=== PATIENT | female | born 2000 ===

== ENCOUNTER 2018-01-18 13:32 | Emergency (ER) | payer OTHER ==
[2018-01-18 13:33] VITALS: BMI 26.5
[2018-01-18] MEDS ORDERED: Sodium Chloride 0.9% 1,000 ML IV ONE (14:07)
[2018-01-18] MEDS ORDERED: DiphenhydrAMINE 50 mg/ml Inj IVP STA (14:12)
[2018-01-18] MEDS ORDERED: Sodium Chloride 0.9% 1,000 ML ONE (14:23)
--- NOTE | 2018-01-18 14:36 | C.PDOC ---
History Of Present Illness 17 yo female w/PMHx of eczema come in for evaluation of worsening of rash over face associated with mild swelling, B/L eyes redness with greenish discharges gradually developed for past 2 days. Pt reports, 5 days ago was applying steroid cream to face given by preschool assistant principal for eczema. Otherwise, pt denies fever, chills, throat tightness or swelling, drooling, dysphagia, dyspnea, CP, SOB, wheezing, abd. pain, V/D, Ambulate to ED for evaluation, not in any apparent distress. Time Seen by Provider: 01/18/18 13:47 Chief Complaint (Nursing): Allergic Reaction History Per: Patient History/Exam Limitations: no limitations Onset/Duration Of Symptoms: Days Current Symptoms Are (Timing): Still Present Recent travel outside of the [place]: No Additional History Per: Patient, Family Past Medical History Reviewed: Historical Data, Nursing Documentation, Vital Signs Vital Signs: Last Vital Signs Temp 98.8 F 01/18/18 13:46 Pulse 102 H 01/18/18 13:46 Resp 20 01/18/18 13:46 BP 114/77 01/18/18 13:46 Pulse Ox 98 01/18/18 16:39 Family History: States: Unknown Family Hx - Social History Hx Tobacco Use: No Hx Alcohol Use: No Hx Substance Use: No - Immunization History Hx Tetanus Toxoid Vaccination: No Hx Influenza Vaccination: No Hx Pneumococcal Vaccination: No Review Of Systems Except As Marked, All Systems Reviewed And Found Negative. Constitutional: Negative for: Fever, Chills Eyes: Positive for: Redness ENT: Negative for: Throat Pain, Throat Swelling Cardiovascular: Negative for: Chest Pain, Palpitations Respiratory: Negative for: Cough, Shortness of Breath Gastrointestinal: Negative for: Nausea, Vomiting, Abdominal Pain Skin: Positive for: Rash Neurological: Negative for: Headache, Dizziness Physical Exam - Physical Exam Appears: Well, Non-toxic, No Acute Distress Skin: Normal Color, Warm, Dry, Rash (scattered erythematous papular/vesicular rash to chin, nasolabila folds, B/L cheeks, B/L eyes corner. Dry scaly skin to side of face and B/L ears.) Eye(s): bilateral: PERRL, EOMI (no pain or limitation on extraocular movement), Other (B/L conjuctival injection with scant greenish discharges. No periorbital edema or erythema.) Ear(s): Bilateral: Normal Nose: No Flaring, No Discharge Oral Mucosa: Moist Tongue: No Swelling Lips: No Swelling Throat: No Erythema, No Drooling, Other (uvula midline, no edema.) Neck: Trachea Midline, Supple Cardiovascular: Rhythm Regular, No Murmur, No JVD Respiratory: No Decreased Breath Sounds, No Accessory Muscle Use, No Stridor, No Wheezing Gastrointestinal/Abdominal: Soft, No Tenderness Back: No CVA Tenderness Extremity: Normal ROM, No Deformity, No Swelling Neurological/Psych: Oriented x3, Normal Speech, Normal Motor, Normal Sensation, Normal Reflexes ED Course And Treatment - Laboratory Results Result Diagrams: 01/18/18 14:46 01/18/18 14:46 O2 Sat by Pulse Oximetry: 98 Pulse Ox Interpretation: Normal Progress Note: On re-eval, pt is awake, playful, not in any apparent distress. Afebrile, hemodynamicaly stable. Non-toxic, tolerate Po well in ED. PUlseOx. head: flat fontanelles. neck: Supple. ENT: no acute findings. Lungs: CTA B/L , BS equal B/L. Abd: benign. Influenza (-). Pt has clinical findings c/w viral illness. parent advised.,. ref. to f/u with ped in 1-2 days for re- eavl. return to ED if any worsening or new changes. Disposition Counseled Patient/Family Regarding: Studies Performed, Diagnosis, Need For Followup, Rx Given - Disposition Referrals: Hector Kaiser MD [Staff Provider] - Disposition: HOME/ ROUTINE Disposition Time: 16:40 Condition: STABLE Additional Instructions: STOP TOPICAL STEROID CREAM IMMEDIATELY DUE TO SIDE EFFECT TAKE MEDICATION PRESCRIBED FOLLOW UP WITH PMD, ANTICHECKING IRON WORKER IN 2-3 DAYS FOR RE-EVALUATION. RETURN TO ED IF ANY WORSENING OR NEW CHANGES. Prescriptions: Cefdinir [Omnicef] 300 mg PO BID #14 cap DiphenhydrAMINE [Benadryl] 25 mg PO BID #10 cap Famotidine [Pepcid] 20 mg PO BID #10 tab Neomycin/Polymyxin/Dexamethaso [Dexamethasone/Neomycin/Polymyxin 5 Ml] 1 drop BOTHEYES Q6 #1 bottle Prednisone [Deltasone] 60 mg PO DAILY #9 tablet Instructions: Dermatitis, Cellulitis (Skin Infection), Adult (DC) Forms: [employer] (Iranian) - Clinical Impression Clinical Impression: Allergic dermatitis - PA / PEDIATRIC NEUROPSYCHOLOGIST / Resident Statement MD/DO has reviewed & agrees with the documentation as recorded. - Scribe Statement The provider has reviewed the documentation as recorded by the Scribe Capo Tate All medical record entries made by the Scribe were at my direction and personally dictated by me. I have reviewed the chart and agree that the record accurately reflects my personal performance of the history, physical exam, medical decision making, and the department course for this patient. I have also personally directed, reviewed, and agree with the discharge instructions and disposition.
[2018-01-18] MEDS ORDERED: DiphenhydrAMINE 50 mg/ml Inj ONE (14:42)
[2018-01-18 14:49] LABS: BASO % 0.5 % (0.0-2.0); LYMPH # 0.8 K/uL (1.0-4.3); LYMPH % 10.1 % (20.0-40.0); MEAN CELL VOLUME 86.8 fL (81.0-99.0); MEAN CORPUSCULAR HEMOGLOBIN 29.8 pg (27.0-31.0); MEAN CORPUSCULAR HGB CONC 34.3 g/dL (33.0-37.0); MEAN PLATELET VOLUME 9.3 fL (7.2-11.7); MONO # 1.4 K/uL (0.0-0.8); MONO % 17.5 % (0.0-10.0); NEUT # 5.6 K/uL (1.8-7.0); NEUT % 71.9 % (50.0-75.0); RBC 4.7 Mil/uL (3.80-5.20); RED CELL DISTRIBUTION WIDTH 12.7 % (11.5-14.5); WHITE BLOOD COUNT 7.9 K/uL (4.8-10.8)
[2018-01-18 15:03] LABS: BLOOD UREA NITROGEN 13 mg/dL (7-17); CALCIUM 8.6 mg/dl (8.6-10.4); GFR AFRICAN-AMERICAN > 60; GFR NON-AFRICAN AMERICAN > 60
[2018-01-18 15:04] LABS: HCG,QUALITATIVE URINE NEGATIVE (NEGATIVE)
[2018-01-18 15:08] LABS: SQUAMOUS EPITHIAL 8 /hpf (0-5); URINE BACTERIA RARE (<OCC); URINE BILIRUBIN NEGATIVE (NEGATIVE); URINE BLOOD 1+ (NEGATIVE); URINE CLARITY Hazy (Clear); URINE COLOR Yellow (YELLOW); URINE GLUCOSE (UA) NORMAL (Normal); URINE LEUKOCYTE ESTERASE NEG Leu/uL (Negative); URINE NITRATE NEGATIVE (NEGATIVE); URINE PROTEIN NEGATIVE (NEGATIVE); URINE UROBILINOGEN NORMAL mg/dL (0.2-1.0)
[2018-01-18 17:38] VITALS: BP 149/84; PULSE 71; RESP 18; TEMP 98.3; O2SAT 100
== END 2018-01-18 17:44 | disposition home or self-care (01) ==
LOC: C.ER 13:32
DX: L23.9 Allergic contact dermatitis, unspecified cause (principal)
CPT/HCPCS: 80048; 81001; 84703; 85025; 87040; 87804; 96361; 96365; 96375; 99285; J0696; J1200; J2930; J7040

== ENCOUNTER 2018-01-22 13:11 | Inpatient (IN) | payer OTHER ==
[2018-01-22 13:12] VITALS: BMI 26.5
--- NOTE | 2018-01-22 15:40 | C.PDOC ---
History Of Present Illness HPI: 18 year old female with past medical history of eczema who presents to the ED for worsening of her eczema. Patient states she went to her repair welder today who sent her to the ED. Patient states the eczema on her face started last Sunday01/16/18. Patient states she was previously applying a steroid cream to her face and then came to the ED last week. After discharge from the ED last week patient was given prednisone and antibiotic drops for her eyes. She states the eczema has worsened since Sunday. She states the rash has started to go into her eyes and on her finger of her left hand. Patient states the lesions are itchy and she had a subjective fever on . She denies nausea, vomiting, diarrhea or constipation. PMD: Patient states she would like Dr. Kaiser but has not had an initial visit yet Past Medical History: Eczema, Seasonal allergies Past Surgical History: denies Allergies: Peanuts and seafood Time Seen by Provider: 01/22/18 15:22 Chief Complaint (Nursing): Abnormal Skin Integrity History Per: Patient History/Exam Limitations: no limitations Past Medical History Vital Signs: Last Vital Signs Temp 98.1 F 01/22/18 13:29 Pulse 84 01/22/18 13:29 Resp 16 01/22/18 13:29 BP 118/79 01/22/18 13:29 Pulse Ox 99 01/22/18 17:03 Family History: States: Unknown Family Hx - Social History Hx Tobacco Use: No Hx Alcohol Use: No Hx Substance Use: No - Immunization History Hx Tetanus Toxoid Vaccination: No Hx Influenza Vaccination: No Hx Pneumococcal Vaccination: No Review Of Systems Constitutional: Positive for: Fever. Negative for: Chills Eyes: Positive for: Conjunctivae Inflammation, Eyelid Inflammation, Redness, Other (eye discharge). Negative for: Pain Cardiovascular: Negative for: Chest Pain, Palpitations Respiratory: Negative for: Cough, Shortness of Breath Gastrointestinal: Negative for: Nausea, Vomiting, Diarrhea, Constipation Genitourinary: Negative for: Dysuria Skin: Positive for: Rash, Lesions Physical Exam - Physical Exam Appears: Toxic Skin: Rash (cutaneous vesicular eruption - face, bilateral eye lids -discharge and lesions are bleeding, back of right ear and right neck, and left hand 5th finger) Head: Atraumatic, Normacephalic Oral Mucosa: Moist Cardiovascular: Rhythm Regular, No Murmur Respiratory: Normal Breath Sounds Gastrointestinal/Abdominal: Normal Exam, Soft, No Tenderness Extremity: No Pedal Edema Neurological/Psych: Oriented x3, Normal Speech, Normal Cognition ED Course And Treatment - Laboratory Results Result Diagrams: 01/22/18 15:59 01/22/18 15:59 O2 Sat by Pulse Oximetry: 99 Medical Decision Making Medical Decision Making: Eczema Herpeticum - cbc: WBC 10.4; H/H 14.7/43.7 - cmp: Na 138; K 2.8 - Acyclovir 340mg IV once - Fluorescein Stain: negative for dendritic cells and negative for corneal abrasion - f/u HSV- 1 Hypokalemia K 2.8 40mg Kdur given once EKG: NSR Spoke with Dr. Kaiser who has accepted the patient as inpatient. Disposition Discussed With : Coleen Montiel Doctor Will See Patient In The: ED - Disposition Disposition: HOSPITALIZED Disposition Time: 17:11 Condition: FAIR Forms: [employer] (Yoruba) - Clinical Impression Clinical Impression: Eczema herpeticum
[2018-01-22] MEDS ORDERED: Fluorescein 1 mg Ophthalmic Strip OD STA (15:48)
[2018-01-22] MEDS ORDERED: Tetracaine 0.5% Ophth (OR ONLY) OD STA (15:49)
[2018-01-22] MEDS ORDERED: ACYCLOVIR IV STA (15:52)
[2018-01-22] MEDS ORDERED: SODIUM CHLORIDE 0.9% IV STA (15:52)
[2018-01-22 16:03] LABS: BASO % 0.2 % (0.0-2.0); EOS % 0.3 % (0.0-4.0); HEMOGLOBIN 14.7 g/dL (11.0-16.0); LYMPH # 1.8 K/uL (1.0-4.3); MEAN CELL VOLUME 87.1 fL (81.0-99.0); MEAN CORPUSCULAR HEMOGLOBIN 29.3 pg (27.0-31.0); MEAN CORPUSCULAR HGB CONC 33.6 g/dL (33.0-37.0); MEAN PLATELET VOLUME 8.9 fL (7.2-11.7); MONO # 1.5 K/uL (0.0-0.8); MONO % 14.5 % (0.0-10.0); RBC 5.02 Mil/uL (3.80-5.20); RED CELL DISTRIBUTION WIDTH 12.5 % (11.5-14.5); WHITE BLOOD COUNT 10.4 K/uL (4.8-10.8)
[2018-01-22] MEDS ORDERED: Tetracaine 0.5% Ophth (OR ONLY) ONE (16:06)
[2018-01-22] MEDS ORDERED: Fluorescein 1 mg Ophthalmic Strip ONE (16:06)
[2018-01-22 16:22] LABS: ALB/GLOB RATIO 1.1 (1.0-2.1); ALBUMIN 3.8 g/dL (3.5-5.0); ALT/SGPT 38 U/L (9-52); AST/SGOT 26 U/L (14-36); BLOOD UREA NITROGEN 19 mg/dL (7-17); CALCIUM 8.9 mg/dl (8.6-10.4); GFR AFRICAN-AMERICAN > 60; GFR NON-AFRICAN AMERICAN > 60
[2018-01-22] MEDS ORDERED: Potassium Chloride 20 mEq ER Tab PO STA (16:38)
[2018-01-22] MEDS ORDERED: Potassium Chloride 20 mEq ER Tab PO ONE (16:57)
[2018-01-22] MEDS ORDERED: Potassium Chloride 20 mEq/15 ml LIQ UD PO ONE (19:15)
[2018-01-22] MEDS ORDERED: Lactated Ringer's 1,000 ML ONE (20:55)
[2018-01-22] MEDS: Lactated Ringer's 1,000 ML IV SCH (21:04)
[2018-01-22] MEDS: Clindamycin 300 MG in Sodium Chloride 0.9% 50 ML IVPB SCH (21:04)
--- NOTE | 2018-01-22 21:20 | CP.PCM.HP ---
History of Present Illness - History of Present Illness History of Present Illness: Chief complaint: Facial skin lesions one week duration HPI: 18 year old female with past medical history of chronic eczema who presents to the ED for worsening of her eczema. Patient states she went to her technical services librarian today who sent her to the ED. Patient started having the symptoms of worsening eczema almost 10 days ago, at that time patient went to see the technical services librarian, and the patient was given triamcinolone acetonide, prednisone pills. 2 days later she started having increasing symptoms of skin pimples in the face , and associated with the rash. But the patient continued to use the cream, because of the worsening skin lesions patient came to the emergency room on Sunday01/18/2018. At the time patient was evaluated in the emergency room, and was sent home with mostly corticosteroid, at that time it was part of drug reaction. Today morning patient went to the technical services librarian, who diagnosed this patient is eczematous herpetiform, and was referred to the emergency room because further management. In the emergency room patient was initially evaluated, was given acyclovir intravenously, fluorescein stain was done to the both eyes, which was negative for any abrasion, or corneal ulcers. Patient is able to see well, does not have any headache, no nausea vomiting, no systemic symptoms. 4 days ago patient started having bullous skin lesions, now there is known new skin lesions noted, but minimal scabbing noted, and some discharge noted from the skin lesions of the right ear lobule. PMD: Patient states she would like Dr. Kaiser but has not had an initial visit yet Past Medical History: Eczema, Seasonal allergies Past Surgical History: denies Allergies: Peanuts and seafood Review of system Noted from the chart. No systemic symptoms except as in the H&P Vital signs reviewed Patient is a very multiple skin lesions occupying the facial area, involving the forehead, periorbital area, also involving the eyelids and both cheeks and nasolabial fold. She also has a skin lesions involving the right ear lobule is mostly, and some of the discharge noted. She is also having symptoms involving the left nipple area, associated with some pus discharge noted. Cultures including viral and bacterial culture were taken from the lesions. The skin lesions multiple, almost in the same age, but some of them are crusted , and healing noted, no new skin lesions, conjunctival erythema noted No neck vein distention noted Chest good air entry bilaterally, no wheezing or rales noted CVS regular heart sound, no murmur noted Abdomen soft, nontender. Extremities no pedal edema BILL CHECKER alert awake oriented -3, no functional neurological deficit Labs reviewed Low potassium level noted. Otherwise nonspecific Assessment and recommendation: 18-year-old female came to the emergency room with a possible herpes simplex infection involving the facial area, and possibly the eyelids. We'll get ophthalmology evaluation. We'll continue the patient on intravenous acyclovir 500 mg 3 times a day. Possibly patient had superadded infection, clindamycin 300 mg 4 times a day. Patient's mother was educated about the condition. Vital culture pending, serology pending, will follow the patient Present on Admission - Present on Admission Any Indicators Present on Admission: No History of DVT/PE: No History of Uncontrolled Diabetes: No Urinary Catheter: No Decubitus Ulcer Present: No Past Patient History - Past Social History Smoking Status: Never Smoked - INTEGUMENTARY Hx Eczema: Yes - PSYCHIATRIC Hx Substance Use: No - SURGICAL HISTORY Hx Surgeries: No - ANESTHESIA Hx Anesthesia: No Meds Allergies/Adverse Reactions: Allergies Allergy/AdvReac Type Severity Reaction Status Date / Time peanut Allergy Verified 01/18/18 13:55 shellfish derived Allergy Verified 01/18/18 13:55 shrimp Allergy Verified 01/18/18 13:55 Results - Vital Signs Recent Vital Signs: Last Vital Signs Temp 98.9 F 01/22/18 19:12 Pulse 102 H 01/22/18 19:12 Resp 20 01/22/18 19:12 BP 103/69 01/22/18 19:12 Pulse Ox 100 01/22/18 19:12 - Labs Result Diagrams: 01/22/18 15:59 01/22/18 15:59 Labs: Laboratory Results - last 24 hr 01/22/18 01/22/18 15:59 15:59 WBC 10.4 RBC 5.02 Hgb 14.7 Hct 43.7 MCV 87.1 MCH 29.3 MCHC 33.6 RDW 12.5 Plt Count 230 MPV 8.9 Neut % (Auto) 68.0 Lymph % (Auto) 17.[address] [place] % (Auto) 14.5 H Eos % (Auto) 0.3 Baso % (Auto) 0.2 Neut # (Auto) 7.0 Lymph # (Auto) 1.8 [place] # (Auto) 1.5 H Eos # (Auto) 0.0 Baso # (Auto) 0.0 Sodium 138 Potassium 2.8 L Chloride 97 L Carbon Dioxide 30 Anion Gap 15 BUN 19 H Creatinine 0.9 Est GFR ( Amer) > 60 Est GFR (Non-Af Amer) > 60 Random Glucose 92 Calcium 8.9 Total Bilirubin 0.5 AST 26 ALT 38 Alkaline Phosphatase 44 Total Protein 7.3 Albumin 3.8 Globulin 3.5 Albumin/Globulin Ratio 1.1
[2018-01-22] MEDS: Acyclovir 500 MG in Sodium Chloride 0.9% 100 ML IV SCH (22:08)
[2018-01-23] MEDS: Clindamycin 300 MG in Sodium Chloride 0.9% 50 ML IVPB SCH ×4 (02:01→19:02)
[2018-01-23] MEDS: Acyclovir 500 MG in Sodium Chloride 0.9% 100 ML IV SCH ×3 (05:22→21:14)
[2018-01-23] MEDS: Lactated Ringer's 1,000 ML IV SCH ×3 (05:22→21:14)
[2018-01-23 07:34] LABS: BASO % 0.4 % (0.0-2.0); EOS # 0.2 K/uL (0.0-0.7); EOS % 2.5 % (0.0-4.0); HEMOGLOBIN 13.8 g/dL (11.0-16.0); LYMPH % 27.7 % (20.0-40.0); MEAN CORPUSCULAR HEMOGLOBIN 29.9 pg (27.0-31.0); MEAN CORPUSCULAR HGB CONC 34.3 g/dL (33.0-37.0); MEAN PLATELET VOLUME 8.6 fL (7.2-11.7); MONO # 1.1 K/uL (0.0-0.8); NEUT # 3.9 K/uL (1.8-7.0); NEUT % 54.4 % (50.0-75.0); RBC 4.63 Mil/uL (3.80-5.20); RED CELL DISTRIBUTION WIDTH 12.3 % (11.5-14.5); WHITE BLOOD COUNT 7.2 K/uL (4.8-10.8)
--- NOTE | 2018-01-23 07:47 | CARD ---
APPROVED REPORT EKG Measurement Heart [id number] <Conclusion> Normal sinus rhythm Normal ECG
[2018-01-23 07:48] LABS: ALBUMIN 3.4 g/dL (3.5-5.0); ALT/SGPT 34 U/L (9-52); AST/SGOT 22 U/L (14-36); BLOOD UREA NITROGEN 14 mg/dL (7-17); CALCIUM 8.6 mg/dl (8.6-10.4); GFR AFRICAN-AMERICAN > 60; GFR NON-AFRICAN AMERICAN > 60
[2018-01-23] MEDS: Tobramycin 0.3% OPH OINT OU SCH ×2 (17:42→21:14)
--- NOTE | 2018-01-23 20:44 | CP.PCM.PN ---
Subjective - Date & Time of Evaluation Date of Evaluation: 01/23/18 Time of Evaluation: 20:42 - Subjective Subjective: Patient was this morning was not able to opening the right side of the eye, it was much is sticky. But later with the saline patient was able to open the eye, minimal redness noted. Patient was seen by chief compressor station engineer. According to the chief compressor station engineer there was no evidence of any worsening corneal involvement, minimal excoriation was identified. Vital signs reviewed No neck vein distention noted, multiple scabs noted, improving Chest good air entry bilaterally, no wheezing or rales noted CVS regular heart sound, no murmur noted Abdomen soft, nontender. Extremities no pedal edema CERTIFIED MASSAGE THERAPIST alert awake oriented -3, no functional neurological deficit wound culture positive for gram-positive cocci on clindamycin now. Assessment and recommendation: 18-year-old female admitted to facial hepatitic skin lesions, and also superadded infection. Currently on IV antibiotic, and acyclovir. Cultures are pending. We'll follow the patient Objective - Vital Signs/Intake and Output Vital Signs (last 24 hours): Temp Pulse Resp BP Pulse Ox 98.0 F 77 20 110/71 97 01/23/18 15:00 01/23/18 15:00 01/23/18 15:00 01/23/18 15:00 01/23/18 15:00 Intake and Output: 01/23/18 01/24/18 18:59 06:59 Intake Total 400 Balance 400 - Medications Medications: Current Medications Lactated Ringer's (Lactated Ringer's) 1,000 mls @ 100 mls/hr IV .Q10H [facility] Last Admin: 01/23/18 15:04 Dose: Not Given Acyclovir 500 mg/ Sodium (Chloride) 100 mls @ 100 mls/hr IV Q8 [facility] Stop: 01/29/18 22:01 Last Admin: 01/23/18 13:46 Dose: 100 mls/hr Clindamycin Phosphate 300 mg/ (Sodium Chloride) 52 mls @ 104 mls/hr IVPB Q6H [facility] Last Admin: 01/23/18 19:02 Dose: 104 mls/hr Pneumococcal Polyvalent Vaccine (Pneumovax 23 Vaccine) 0.5 ml IM .ONCE ONE Stop: 01/25/18 10:01 Tobramycin Sulfate (Tobrex 0.3% Ophth Oint) 0 appl OU QID [facility] Last Admin: 01/23/18 17:42 Dose: 1 applic - Labs Labs: 01/23/18 07:01 01/23/18 06:59
--- NOTE | 2018-01-24 00:58 | CON ---
DATE: 01/23/2018. OPHTHALMOLOGY CONSULTATION HISTORY OF PRESENT ILLNESS: The patient is a 18-year-old female with history of lesion starting on her face, last , just on the left side. Over the weekend, she noticed the lesions were spreading all over face. She came to the ER yesterday and was admitted with herpetic dermatitis over her face. PAST MEDICAL HISTORY: None. PAST SURGICAL HISTORY: None. ALLERGIES: NO KNOWN DRUG ALLERGIES. MEDICATIONS: She reports she is currently on no medications. REVIEW OF SYSTEMS: The patient reports that she feels that her eyes have a lot of discharge, and she feels that the vision is slightly blurry. Other than that, there is a minimal amount of soreness. PHYSICAL EXAMINATION: HEENT: Her vision in the right eye is 20/18 near card, left eye is 20/30 near card. She is noted to have numerous vesicular lesions all over her face including on all her eyelids. She has no APD. Her eye pressure is soft to palpation in both eyes. Her slit lamp exam shows edema of all her eyelids with vesicular lesions along the lid margin. She is noted to have discharge from both eyes. Her cornea show punctate staining in both eyes, the right eye to a much more degree than the left eye. There is noted to be no infiltrates in the corneas at this point. There was no anterior chamber reaction. Her posterior exam appears clear, the vitreous appears clear. There appears to be no retinal lesion. Her nerve appears normal in both eyes. ASSESSMENT: Keratitis of both cornea. RECOMMENDATIONS: She is already on IV antiviral medications. She also is on antibiotic drops which I would continue. I would also add and I have already added to her orders, tobramycin ointment to put in both eyes 4 times a day which will help with the corneas. I would not recommend any steroids for eyes at this point due to an infectious nature of the virus, I would rather wait. Right now, she should do well with the topical medication. Upon discharge, I recommended to the patient, to be seen in our office, to see if she needs anything further. If you have any questions, you can call [phone]. Earl Mathis MD
[2018-01-24] MEDS: Clindamycin 300 MG in Sodium Chloride 0.9% 50 ML IVPB SCH ×4 (01:58→19:25)
[2018-01-24] MEDS: Lactated Ringer's 1,000 ML IV SCH ×3 (01:59→21:23)
[2018-01-24] MEDS: Acyclovir 500 MG in Sodium Chloride 0.9% 100 ML IV SCH ×3 (05:23→22:29)
[2018-01-24] MEDS: Tobramycin 0.3% OPH OINT OU SCH ×4 (09:15→22:30)
[2018-01-25] MEDS: Clindamycin 300 MG in Sodium Chloride 0.9% 50 ML IVPB SCH ×4 (01:39→21:07)
[2018-01-25] MEDS: Lactated Ringer's 1,000 ML IV SCH ×3 (05:36→17:09)
[2018-01-25] MEDS: Acyclovir 500 MG in Sodium Chloride 0.9% 100 ML IV SCH ×3 (05:37→21:07)
[2018-01-25] MEDS ORDERED: Pneumococcal 23-Valent Vaccine IM ONE (10:00)
[2018-01-25] MEDS: Tobramycin 0.3% OPH OINT OU SCH ×4 (10:36→21:07)
[2018-01-25 11:46] LABS: BASO % 0.4 % (0.0-2.0); EOS # 0.6 K/uL (0.0-0.7); EOS % 6.2 % (0.0-4.0); HEMOGLOBIN 13.6 g/dL (11.0-16.0); LYMPH # 1.7 K/uL (1.0-4.3); LYMPH % 17.6 % (20.0-40.0); MEAN CELL VOLUME 85.9 fL (81.0-99.0); MEAN CORPUSCULAR HEMOGLOBIN 29.7 pg (27.0-31.0); MEAN CORPUSCULAR HGB CONC 34.5 g/dL (33.0-37.0); MEAN PLATELET VOLUME 8.6 fL (7.2-11.7); MONO # 0.6 K/uL (0.0-0.8); NEUT # 6.9 K/uL (1.8-7.0); NEUT % 69.8 % (50.0-75.0); NRBC % 0.1 % (0.0-2.0); RBC 4.59 Mil/uL (3.80-5.20); RED CELL DISTRIBUTION WIDTH 12.5 % (11.5-14.5); WHITE BLOOD COUNT 9.9 K/uL (4.8-10.8)
[2018-01-25 12:36] LABS: ALB/GLOB RATIO 1.2 (1.0-2.1); ALBUMIN 3.7 g/dL (3.5-5.0); ALT/SGPT 26 U/L (9-52); AST/SGOT 16 U/L (14-36); BLOOD UREA NITROGEN 14 mg/dL (7-17); CALCIUM 9.1 mg/dl (8.6-10.4); GFR AFRICAN-AMERICAN > 60; GFR NON-AFRICAN AMERICAN > 60
--- NOTE | 2018-01-25 23:00 | CP.PCM.PN ---
Subjective - Date & Time of Evaluation Date of Evaluation: 01/25/18 Time of Evaluation: 23:00 - Subjective Subjective: Patient still continues to have a vesicles in the face. Also minimal discharge in the left breast area noted. Finding no other active symptoms. Denies any chest pain, no shortness of breath, no nausea, diarrhea. Vital signs reviewed No neck vein distention noted Chest good air entry bilaterally, no wheezing or rales noted CVS regular heart sound, no murmur noted Abdomen soft, nontender. 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 Controlled well with antiviral treatment at this time. Patient also had a Staphylococcus infection involving the skin and soft tissue. responding with the clindamycin. We will continue the current treatment and will follow the patient. No new changes, the skin lesions are improving,eye lids swelling improving Objective - Vital Signs/Intake and Output Vital Signs (last 24 hours): Temp Pulse Resp BP Pulse Ox 98.3 F 67 18 105/67 99 01/25/18 16:00 01/25/18 16:00 01/25/18 16:00 01/25/18 16:00 01/25/18 16:00 Intake and Output: 01/25/18 01/26/18 18:59 06:59 Intake Total 1900 Balance 1900 - Medications Medications: Current Medications Docusate Sodium (Colace) 100 mg PO TID [facility] Last Admin: 01/25/18 17:09 Dose: 100 mg Acyclovir 500 mg/ Sodium (Chloride) 100 mls @ 100 mls/hr IV Q8 [facility] Stop: 01/29/18 22:01 Last Admin: 01/25/18 21:07 Dose: 100 mls/hr Clindamycin Phosphate 300 mg/ (Sodium Chloride) 52 mls @ 104 mls/hr IVPB Q6H [facility] Last Admin: 01/25/18 21:07 Dose: 104 mls/hr Tobramycin Sulfate (Tobrex 0.3% Ophth Oint) 0 appl OU QID [facility] Last Admin: 01/25/18 21:07 Dose: 1 applic - Labs Labs: 01/25/18 11:31 01/25/18 11:31
--- NOTE | 2018-01-25 23:00 | CP.PCM.PN ---
Subjective - Date & Time of Evaluation Date of Evaluation: 01/24/18 Time of Evaluation: 22:59 - Subjective Subjective: Patient still continues to have a vesicles in the face. Also minimal discharge in the left breast area noted. Finding no other active symptoms. Denies any chest pain, no shortness of breath, no nausea, diarrhea. Vital signs reviewed No neck vein distention noted Chest good air entry bilaterally, no wheezing or rales noted CVS regular heart sound, no murmur noted Abdomen soft, nontender. 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 Controlled well with antiviral treatment at this time. Patient also had a Staphylococcus infection involving the skin and soft tissue. responding with the clindamycin. We will continue the current treatment and will follow the patient. Objective - Vital Signs/Intake and Output Vital Signs (last 24 hours): Temp Pulse Resp BP Pulse Ox 98.3 F 67 18 105/67 99 01/25/18 16:00 01/25/18 16:00 01/25/18 16:00 01/25/18 16:00 01/25/18 16:00 Intake and Output: 01/25/18 01/26/18 18:59 06:59 Intake Total 1900 Balance 1900 - Medications Medications: Current Medications Docusate Sodium (Colace) 100 mg PO TID [facility] Last Admin: 01/25/18 17:09 Dose: 100 mg Acyclovir 500 mg/ Sodium (Chloride) 100 mls @ 100 mls/hr IV Q8 [facility] Stop: 01/29/18 22:01 Last Admin: 01/25/18 21:07 Dose: 100 mls/hr Clindamycin Phosphate 300 mg/ (Sodium Chloride) 52 mls @ 104 mls/hr IVPB Q6H [facility] Last Admin: 01/25/18 21:07 Dose: 104 mls/hr Tobramycin Sulfate (Tobrex 0.3% Ophth Oint) 0 appl OU QID [facility] Last Admin: 01/25/18 21:07 Dose: 1 applic - Labs Labs: 01/25/18 11:31 01/25/18 11:31
[2018-01-26] MEDS: Clindamycin 300 MG in Sodium Chloride 0.9% 50 ML IVPB SCH ×4 (02:19→19:16)
[2018-01-26] MEDS: Acyclovir 500 MG in Sodium Chloride 0.9% 100 ML IV SCH ×3 (05:43→20:59)
[2018-01-26 09:08] LABS: BASO # 0.1 K/uL (0.0-0.2); BASO % 0.5 % (0.0-2.0); EOS % 7.9 % (0.0-4.0); HEMOGLOBIN 13.1 g/dL (11.0-16.0); LYMPH # 2.2 K/uL (1.0-4.3); LYMPH % 18.1 % (20.0-40.0); MEAN CELL VOLUME 86.5 fL (81.0-99.0); MEAN CORPUSCULAR HEMOGLOBIN 29.9 pg (27.0-31.0); MEAN CORPUSCULAR HGB CONC 34.5 g/dL (33.0-37.0); MEAN PLATELET VOLUME 8.6 fL (7.2-11.7); MONO # 0.9 K/uL (0.0-0.8); MONO % 7.5 % (0.0-10.0); RBC 4.39 Mil/uL (3.80-5.20); RED CELL DISTRIBUTION WIDTH 12.3 % (11.5-14.5); WHITE BLOOD COUNT 12.1 K/uL (4.8-10.8)
[2018-01-26 09:25] LABS: ALBUMIN 3.5 g/dL (3.5-5.0); ALT/SGPT 18 U/L (9-52); AST/SGOT 16 U/L (14-36); BLOOD UREA NITROGEN 14 mg/dL (7-17); CALCIUM 9.2 mg/dl (8.6-10.4); GFR AFRICAN-AMERICAN > 60; GFR NON-AFRICAN AMERICAN > 60
[2018-01-26] MEDS: Tobramycin 0.3% OPH OINT OU SCH ×4 (09:31→21:00)
--- NOTE | 2018-01-26 12:56 | CP.PCM.CON ---
<Singh Hartley - Last Filed: 01/26/18 12:57> History of Present Illness - History of Present Illness History of Present Illness: General Surgery: Dr Delaney Pt is a 18F with history of eczema. 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 Pts skin condition continued to worsen and she developed subsequent rash. Upon repeat evaluation pt was sent to ED for further mgmt. Currently pt being treated with acyclovir and clinda. Surgery was consulted to evaluate left breast which presents with similar lesion. PT reports this has been present for 2 weeks. There is no tenderness. Denies any discharge. No history of erythema or fluctuance. Pt denies N/V, F/C, SOB. Review of Systems - Review of Systems All systems: reviewed and no additional remarkable complaints except (as per hpi ) Past Patient History - Past Medical History & Family History Past Medical History?: Yes - Past Social History Smoking Status: Never Smoked - CARDIAC Hx Cardiac Disorders: No - PULMONARY Hx Respiratory Disorders: No - NEUROLOGICAL Hx Neurological Disorder: No - HEENT Hx HEENT Problems: No - RENAL Hx Chronic Kidney Disease: No - ENDOCRINE/METABOLIC Hx Endocrine Disorders: No - HEMATOLOGICAL/ONCOLOGICAL Hx Blood Disorders: No - INTEGUMENTARY Hx Eczema: Yes - MUSCULOSKELETAL/RHEUMATOLOGICAL Hx Musculoskeletal Disorders: No Hx Falls: No - GASTROINTESTINAL Hx Gastrointestinal Disorders: No - GENITOURINARY/GYNECOLOGICAL Hx Genitourinary Disorders: No - PSYCHIATRIC Hx Psychophysiologic Disorder: No Hx Substance Use: No - SURGICAL HISTORY Hx Surgeries: No - ANESTHESIA Hx Anesthesia: No Meds Allergies/Adverse Reactions: Allergies Allergy/AdvReac Type Severity Reaction Status Date / Time peanut Allergy Verified 01/18/18 13:55 shellfish derived Allergy Verified 01/18/18 13:55 shrimp Allergy Verified 01/18/18 13:55 - Medications Medications: Current Medications Bacitracin (Bacitracin) 0 gm TOP BID [facility] Diphenhydramine HCl (Benadryl) 25 mg PO Q6 PRN PRN Reason: itchyness Last Admin: 01/26/18 11:10 Dose: 25 mg Docusate Sodium (Colace) 100 mg PO TID [facility] Last Admin: 01/26/18 09:31 Dose: 100 mg Acyclovir 500 mg/ Sodium (Chloride) 100 mls @ 100 mls/hr IV Q8 [facility] Stop: 01/29/18 22:01 Last Admin: 01/26/18 05:43 Dose: 100 mls/hr Clindamycin Phosphate 300 mg/ (Sodium Chloride) 52 mls @ 104 mls/hr IVPB Q6H COUNTS INCLUDE 234 BEDS AT THE [facility] Last Admin: 01/26/18 07:58 Dose: 104 mls/hr Ceftriaxone Sodium 1 gm/ (Sodium Chloride) 100 mls @ 100 mls/hr IVPB Q12H COUNTS INCLUDE 234 BEDS AT THE [facility] Tobramycin Sulfate (Tobrex 0.3% Ophth Oint) 0 appl OU QID COUNTS INCLUDE 234 BEDS AT THE [facility] Last Admin: 01/26/18 09:31 Dose: 1 applic Physical Exam - Constitutional Appears: Non-toxic, No Acute Distress - Head Exam Head Exam: NORMOCEPHALIC - Eye Exam Eye Exam: Periorbital swelling - ENT Exam ENT Exam: Normal Exam Additional comments: multiple lesions of similar stage on the face, crusting - Respiratory Exam Respiratory Exam: absent: Accessory Muscle Use, Respiratory Distress - Cardiovascular Exam Cardiovascular Exam: REGULAR RHYTHM. absent: Tachycardia - GI/Abdominal Exam GI & Abdominal Exam: Soft. absent: Tenderness - Neurological Exam Neurological exam: Alert, Oriented x3 - Psychiatric Exam Psychiatric exam: Normal Affect, Normal Mood - Skin Skin Exam: Normal Color Additional comments: multiple crusting lesions on the face extending down to the chest left breast with 3x3 scab like lesion above the areola Results - Vital Signs Recent Vital Signs: Last Vital Signs Temp 97.7 F 01/26/18 07:30 Pulse 54 L 01/26/18 07:30 Resp 20 01/26/18 07:30 BP 106/70 01/26/18 07:30 Pulse Ox 100 01/26/18 07:30 - Labs Result Diagrams: 01/26/18 08:51 01/26/18 08:51 Labs: Laboratory Results - last 24 hr 01/26/18 01/26/18 08:51 08:51 WBC 12.1 H RBC 4.39 Hgb 13.1 Hct 38.0 MCV 86.5 MCH 29.9 MCHC 34.5 RDW 12.3 Plt Count 256 MPV 8.6 Neut % (Auto) 66.0 Lymph % (Auto) 18.1 L [place] % (Auto) 7.5 Eos % (Auto) 7.9 H Baso % (Auto) 0.5 Neut # (Auto) 8.0 H Lymph # (Auto) 2.2 [place] # (Auto) 0.9 H Eos # (Auto) 1.0 H Baso # (Auto) 0.1 Sodium 141 Potassium 3.7 Chloride 100 Carbon Dioxide 29 Anion Gap 15 BUN 14 Creatinine 0.8 Est GFR ( Amer) > 60 Est GFR (Non-Af Amer) > 60 Random Glucose 72 Calcium 9.2 Total Bilirubin 0.4 AST 16 ALT 18 Alkaline Phosphatase 39 Total Protein 6.8 Albumin 3.5 Globulin 3.3 Albumin/Globulin Ratio 1.0 Assessment & Plan - Assessment and Plan (Free Text) Assessment: 18F with eczema herpitiformis Plan: continue anti-viral and antibiotics warm compresses to left breast no immediate surgical intervention planned will d/w Dr Elaina Hartley, PGY3 - Date & Time Date: 01/26/18 Time: 13:03 <Rajeev Delaney - Last Filed: 01/28/18 11:31> Meds - Medications Medications: Current Medications Bacitracin (Bacitracin) 0 gm TOP BID COUNTS [facility]CLUDE 234 BEDS AT [facility] Last Admin: 01/28/18 10:22 Dose: 1 applic Diphenhydramine HCl (Benadryl) 25 mg PO Q6 PRN PRN Reason: itchyness Last Admin: 01/27/18 19:29 Dose: 25 mg Docusate Sodium (Colace) 100 mg PO TID COUNTS INCLUDE 234 BEDS AT [facility] Last Admin: 01/28/18 10:21 Dose: Not Given Acyclovir 500 mg/ Sodium (Chloride) 100 mls @ 100 mls/hr IV Q8 COUNTS INCLUDE 234 BEDS AT THE [facility] Stop: 01/29/18 22:01 Last Admin: 01/28/18 06:25 Dose: 100 mls/hr Clindamycin Phosphate 300 mg/ (Sodium Chloride) 52 mls @ 104 mls/hr IVPB Q6H COUNTS INCLUDE 234 BEDS AT THE [facility] Last Admin: 01/28/18 08:35 Dose: 104 mls/hr Ceftriaxone Sodium 1 gm/ (Sodium Chloride) 100 mls @ 100 mls/hr IVPB Q12H COUNTS INCLUDE 234 BEDS AT [facility] Last Admin: 01/28/18 00:32 Dose: 100 mls/hr Tobramycin Sulfate (Tobrex 0.3% Ophth Oint) 0 appl OU QID COUNTS INCLUDE 234 BEDS AT [facility] Last Admin: 01/28/18 10:22 Dose: 1 applic Results - Vital Signs Recent Vital Signs: Last Vital Signs Temp 98.0 F 01/28/18 07:25 Pulse 67 01/28/18 07:25 Resp 20 01/28/18 07:25 BP 103/64 01/28/18 07:25 Pulse Ox 98 01/28/18 07:25 - Labs Result Diagrams: 01/27/18 07:51 01/27/18 07:51 Attending/Attestation - Attestation I have personally seen and examined this patient.: Yes I have fully participated in the care of the patient.: Yes I have reviewed all pertinent clinical information: Yes Notes (Text): Pt was seen and examined at bedside Agree with above note and assessment Pt with herpatic lesion of face and upper chest Breast Exam: mild thickening of Nipple areola complex on left side No clinical evidence of breast cellulitis or abscess C/w current mx US of breast Plan d.w pt in detail. Risk and benefit explained in detail.
[2018-01-26] MEDS: Bacitracin Ointment 30 GM TUBE TOP SCH (17:28)
[2018-01-27] MEDS: Clindamycin 300 MG in Sodium Chloride 0.9% 50 ML IVPB SCH ×4 (01:46→19:23)
[2018-01-27] MEDS: Acyclovir 500 MG in Sodium Chloride 0.9% 100 ML IV SCH ×3 (06:30→21:20)
--- NOTE | 2018-01-27 06:30 | CP.PCM.PN ---
Addendum entered and electronically signed by Zoey Davalos DO 01/27/18 15:49: Pt seen and examined with Dr. Delaney at bedside. Pt is being treated with anti-virals and abx for herpes/staph infections. US of the breast negative. No further surgical intervention at this time. Original Note: <Singh Hartley Jonny - Last Filed: 01/27/18 06:28> Subjective - Date & Time of Evaluation Date of Evaluation: 01/27/18 Time of Evaluation: 06:28 - Subjective Subjective: General Surgery: Dr Delaney Pt S&E. NAEJon. Condition remains unchanged. d/w pt results of recent breast US. There is no abscess or fluid collection for us to drain. Just continue IV abx/anti-virals as she is being given. Denies any f/c, n/v, sob. Area of left breast remains non-tender. Objective - Vital Signs/Intake and Output Vital Signs (last 24 hours): Temp Pulse Resp BP Pulse Ox 98.2 F 62 20 118/67 98 01/27/18 00:21 01/27/18 00:21 01/27/18 00:21 01/27/18 00:21 01/27/18 00:21 Intake and Output: 01/26/18 01/27/18 18:59 06:59 Intake Total 700 650 Balance 700 650 - Medications Medications: Current Medications Bacitracin (Bacitracin) 0 gm TOP BID [facility] Last Admin: 01/26/18 17:28 Dose: 1 applic Diphenhydramine HCl (Benadryl) 25 mg PO Q6 PRN PRN Reason: itchyness Last Admin: 01/27/18 01:46 Dose: 25 mg Docusate Sodium (Colace) 100 mg PO TID [facility] Last Admin: 01/26/18 17:41 Dose: 100 mg Acyclovir 500 mg/ Sodium (Chloride) 100 mls @ 100 mls/hr IV Q8 [facility] Stop: 01/29/18 22:01 Last Admin: 01/26/18 20:59 Dose: 100 mls/hr Clindamycin Phosphate 300 mg/ (Sodium Chloride) 52 mls @ 104 mls/hr IVPB Q6H [facility] Last Admin: 01/27/18 01:46 Dose: 104 mls/hr Ceftriaxone Sodium 1 gm/ (Sodium Chloride) 100 mls @ 100 mls/hr IVPB Q12H [facility] Last Admin: 01/27/18 00:30 Dose: 100 mls/hr Tobramycin Sulfate (Tobrex 0.3% Ophth Oint) 0 appl OU QID [facility] Last Admin: 01/26/18 21:00 Dose: 1 applic - Labs Labs: 01/26/18 08:51 01/26/18 08:51 - Constitutional Appears: Non-toxic, No Acute Distress - Eye Exam Eye Exam: Periorbital swelling - ENT Exam ENT Exam: Normal Exam - Respiratory Exam Respiratory Exam: absent: Accessory Muscle Use, Respiratory Distress - Cardiovascular Exam Cardiovascular Exam: REGULAR RHYTHM. absent: Tachycardia - Psychiatric Exam Psychiatric exam: Normal Mood - Skin Additional comments: multiple crusting papules in similar stages, mainly confined to face, with minimal spreading down neck onto chest Assessment and Plan - Assessment and Plan (Free Text) Assessment: 18F with eczematous herpitformis Plan: cont IV abx and anti-virals local wound care PRN no surgical intervention for left breast US demonstrates no abscess or drainable fluid collection will d/w Dr Elaina Hartley, PGY3 <Rajeev Delaney B - Last Filed: 01/28/18 11:43> Objective - Vital Signs/Intake and Output Vital Signs (last 24 hours): Temp Pulse Resp BP Pulse Ox 98.0 F 67 20 103/64 98 01/28/18 07:25 01/28/18 07:25 01/28/18 07:25 01/28/18 07:25 01/28/18 07:25 - Medications Medications: Current Medications Bacitracin (Bacitracin) 0 gm TOP BID [facility] Last Admin: 01/28/18 10:22 Dose: 1 applic Diphenhydramine HCl (Benadryl) 25 mg PO Q6 PRN PRN Reason: itchyness Last Admin: 01/27/18 19:29 Dose: 25 mg Docusate Sodium (Colace) 100 mg PO TID [facility] Last Admin: 01/28/18 10:21 Dose: Not Given Acyclovir 500 mg/ Sodium (Chloride) 100 mls @ 100 mls/hr IV Q8 [facility] Stop: 01/29/18 22:01 Last Admin: 01/28/18 06:25 Dose: 100 mls/hr Clindamycin Phosphate 300 mg/ (Sodium Chloride) 52 mls @ 104 mls/hr IVPB Q6H [facility] Last Admin: 01/28/18 08:35 Dose: 104 mls/hr Ceftriaxone Sodium 1 gm/ (Sodium Chloride) 100 mls @ 100 mls/hr IVPB Q12H [facility] Last Admin: 01/28/18 00:32 Dose: 100 mls/hr Tobramycin Sulfate (Tobrex 0.3% Ophth Oint) 0 appl OU QID [facility] Last Admin: 01/28/18 10:22 Dose: 1 applic - Labs Labs: 01/27/18 07:51 01/27/18 07:51 Attending/Attestation - Attestation I have personally seen and examined this patient.: Yes I have fully participated in the care of the patient.: Yes I have reviewed all pertinent clinical information, including history, physical exam and plan: Yes Notes (Text): Pt was seen and examined at bedside Agree with above note and assessment Pt is improving US of breast : No evidence of abscess C/w current mx Plan d.w pt in detail. Risk and benefit explained in detail
[2018-01-27 08:09] LABS: BASO # 0.1 K/uL (0.0-0.2); BASO % 0.6 % (0.0-2.0); EOS # 0.9 K/uL (0.0-0.7); EOS % 7.8 % (0.0-4.0); LYMPH % 17.5 % (20.0-40.0); MEAN CELL VOLUME 86.2 fL (81.0-99.0); MEAN CORPUSCULAR HEMOGLOBIN 29.6 pg (27.0-31.0); MEAN CORPUSCULAR HGB CONC 34.3 g/dL (33.0-37.0); MEAN PLATELET VOLUME 8.7 fL (7.2-11.7); MONO # 0.8 K/uL (0.0-0.8); MONO % 7.4 % (0.0-10.0); NEUT # 7.7 K/uL (1.8-7.0); NEUT % 66.7 % (50.0-75.0); RBC 4.39 Mil/uL (3.80-5.20); RED CELL DISTRIBUTION WIDTH 12.5 % (11.5-14.5); WHITE BLOOD COUNT 11.5 K/uL (4.8-10.8)
[2018-01-27 08:37] LABS: ALBUMIN 3.5 g/dL (3.5-5.0); ALT/SGPT 19 U/L (9-52); AST/SGOT 14 U/L (14-36); BLOOD UREA NITROGEN 12 mg/dL (7-17); CALCIUM 9.2 mg/dl (8.6-10.4); GFR AFRICAN-AMERICAN > 60; GFR NON-AFRICAN AMERICAN > 60
[2018-01-27] MEDS: Tobramycin 0.3% OPH OINT OU SCH ×4 (10:35→21:20)
[2018-01-27] MEDS: Bacitracin Ointment 30 GM TUBE TOP SCH ×2 (10:36→18:16)
[2018-01-27 16:16] VITALS: RESP 20
[2018-01-28] MEDS: Clindamycin 300 MG in Sodium Chloride 0.9% 50 ML IVPB SCH ×4 (01:24→18:59)
[2018-01-28] MEDS: Acyclovir 500 MG in Sodium Chloride 0.9% 100 ML IV SCH ×3 (06:25→22:15)
--- NOTE | 2018-01-28 08:48 | US ---
PROCEDURE: Ultrasound examination of left breast HISTORY: abscess COMPARISON: Not available TECHNIQUE: Examination was performed throughout the left breast and axilla. FINDINGS: There is no solid or cystic mass. There is no evidence of abscess. IMPRESSION: No sonographic evidence of abscess. BIRADS 1 Negative Recommendation: Clinical followup
[2018-01-28] MEDS: Tobramycin 0.3% OPH OINT OU SCH ×4 (10:22→22:15)
[2018-01-28] MEDS: Bacitracin Ointment 30 GM TUBE TOP SCH ×2 (10:22→18:51)
--- NOTE | 2018-01-28 18:24 | CP.PCM.PN ---
Subjective - Date & Time of Evaluation Date of Evaluation: 01/26/18 Time of Evaluation: 18:22 - Subjective Subjective: The facial skin lesions are improving, no new lesions noted. Ear lobule improvement noted. Skin wound behind the right ear lobule is noted, bacitracin is being applied. No pain. Patient is able to take showers without any difficulty Vital signs reviewed No neck vein distention noted Chest good air entry bilaterally, no wheezing or rales noted CVS regular heart sound, no murmur noted Abdomen soft, nontender. Extremities no pedal edema [employer] alert awake oriented -3, no functional neurological deficit The facial skin lesions, healing, scabbed noted. Currently on intravenous acyclovir. Will add Rocephin, surgical evaluation for possible left breast mastitis Objective - Vital Signs/Intake and Output Vital Signs (last 24 hours): Temp Pulse Resp BP Pulse Ox 98.2 F 82 20 110/73 99 01/28/18 15:47 01/28/18 15:47 01/28/18 15:47 01/28/18 15:47 01/28/18 15:47 Intake and Output: 01/28/18 01/28/18 06:59 18:59 Intake Total 540 Balance 540 - Medications Medications: Current Medications Bacitracin (Bacitracin) 0 gm TOP BID [facility] Last Admin: 01/28/18 10:22 Dose: 1 applic Diphenhydramine HCl (Benadryl) 25 mg PO Q6 PRN PRN Reason: itchyness Last Admin: 01/28/18 11:57 Dose: 25 mg Acyclovir 500 mg/ Sodium (Chloride) 100 mls @ 100 mls/hr IV Q8 [facility] Stop: 01/29/18 22:01 Last Admin: 01/28/18 13:37 Dose: 100 mls/hr Ceftriaxone Sodium 1 gm/ (Sodium Chloride) 100 mls @ 100 mls/hr IVPB Q12H [facility] Last Admin: 01/28/18 12:31 Dose: 100 mls/hr Clindamycin Phosphate 300 mg/ (Sodium Chloride) 52 mls @ 104 mls/hr IVPB Q6H [facility] Last Admin: 01/28/18 14:54 Dose: 104 mls/hr Tobramycin Sulfate (Tobrex 0.3% Ophth Oint) 0 appl OU QID [facility] Last Admin: 01/28/18 13:40 Dose: 1 applic - Labs Labs: 01/27/18 07:51 01/27/18 07:51
--- NOTE | 2018-01-28 18:24 | CP.PCM.PN ---
Subjective - Date & Time of Evaluation Date of Evaluation: 01/27/18 Time of Evaluation: 18:24 - Subjective Subjective: The facial skin lesions are improving, no new lesions noted. Ear lobule improvement noted. Skin wound behind the right ear lobule is noted, bacitracin is being applied. No pain. Patient is able to take showers without any difficulty Vital signs reviewed No neck vein distention noted Chest good air entry bilaterally, no wheezing or rales noted CVS regular heart sound, no murmur noted Abdomen soft, nontender. Extremities no pedal edema [employer] alert awake oriented -3, no functional neurological deficit The facial skin lesions, healing, scabbed noted. Currently on intravenous acyclovir. On clindamycin, Rocephin. Viral culture final report pending Objective - Vital Signs/Intake and Output Vital Signs (last 24 hours): Temp Pulse Resp BP Pulse Ox 98.2 F 82 20 110/73 99 01/28/18 15:47 01/28/18 15:47 01/28/18 15:47 01/28/18 15:47 01/28/18 15:47 Intake and Output: 01/28/18 01/28/18 06:59 18:59 Intake Total 540 Balance 540 - Medications Medications: Current Medications Bacitracin (Bacitracin) 0 gm TOP BID [facility] Last Admin: 01/28/18 10:22 Dose: 1 applic Diphenhydramine HCl (Benadryl) 25 mg PO Q6 PRN PRN Reason: itchyness Last Admin: 01/28/18 11:57 Dose: 25 mg Acyclovir 500 mg/ Sodium (Chloride) 100 mls @ 100 mls/hr IV Q8 [facility] Stop: 01/29/18 22:01 Last Admin: 01/28/18 13:37 Dose: 100 mls/hr Ceftriaxone Sodium 1 gm/ (Sodium Chloride) 100 mls @ 100 mls/hr IVPB Q12H [facility] Last Admin: 01/28/18 12:31 Dose: 100 mls/hr Clindamycin Phosphate 300 mg/ (Sodium Chloride) 52 mls @ 104 mls/hr IVPB Q6H [facility] Last Admin: 01/28/18 14:54 Dose: 104 mls/hr Tobramycin Sulfate (Tobrex 0.3% Ophth Oint) 0 appl OU QID [facility] Last Admin: 03/05/18 13:40 Dose: 1 applic - Labs Labs: 01/27/18 07:51 01/27/18 07:51
--- NOTE | 2018-01-28 22:22 | CP.PCM.PN ---
Subjective - Date & Time of Evaluation Date of Evaluation: 01/28/18 Time of Evaluation: 22:21 - Subjective Subjective: No new changes. The facial skin is improving. Significant improvement in the ear lobule noted. Clinically stable. Tomorrow patient will be getting the seventh day of intravenous acyclovir. The viral culture is still pending. We'll continue the current treatment. We'll follow the patient. Possible discharge plan tomorrow Objective - Vital Signs/Intake and Output Vital Signs (last 24 hours): Temp Pulse Resp BP Pulse Ox 98.2 F 82 20 110/73 99 01/28/18 15:47 01/28/18 15:47 01/28/18 15:47 01/28/18 15:47 01/28/18 15:47 Intake and Output: 01/28/18 01/29/18 18:59 06:59 Intake Total 540 Balance 540 - Medications Medications: Current Medications Bacitracin (Bacitracin) 0 gm TOP BID [facility] Last Admin: 01/28/18 18:51 Dose: 1 applic Diphenhydramine HCl (Benadryl) 25 mg PO Q6 PRN PRN Reason: itchyness Last Admin: 01/28/18 22:17 Dose: 25 mg Acyclovir 500 mg/ Sodium (Chloride) 100 mls @ 100 mls/hr IV Q8 [facility] Stop: 01/29/18 22:01 Last Admin: 01/28/18 22:15 Dose: 100 mls/hr Ceftriaxone Sodium 1 gm/ (Sodium Chloride) 100 mls @ 100 mls/hr IVPB Q12H [facility] Last Admin: 01/28/18 12:31 Dose: 100 mls/hr Clindamycin Phosphate 300 mg/ (Sodium Chloride) 52 mls @ 104 mls/hr IVPB Q6H [facility] Last Admin: 01/28/18 18:59 Dose: 104 mls/hr Tobramycin Sulfate (Tobrex 0.3% Ophth Oint) 0 appl OU QID [facility] Last Admin: 01/28/18 22:15 Dose: 1 applic - Labs Labs: 01/27/18 07:51 01/27/18 07:51
[2018-01-29] MEDS: Clindamycin 300 MG in Sodium Chloride 0.9% 50 ML IVPB SCH ×3 (02:52→13:50)
[2018-01-29] MEDS: Acyclovir 500 MG in Sodium Chloride 0.9% 100 ML IV SCH ×3 (05:50→18:30)
[2018-01-29 08:31] VITALS: O2SAT 100
[2018-01-29] MEDS: Bacitracin Ointment 30 GM TUBE TOP SCH ×2 (10:17→19:00)
[2018-01-29] MEDS: Tobramycin 0.3% OPH OINT OU SCH ×3 (10:18→19:00)
[2018-01-29 16:00] VITALS: BP 114/69; PULSE 85; TEMP 98
--- NOTE | 2018-01-29 23:18 | CP.PCM.DIS ---
Provider - Provider Date of Admission: 01/22/18 17:08 Attending physician: Hector Kaiser MD Time Spent in preparation of Discharge (in minutes): 45 Hospital Course - Lab Results Lab Results: Micro Results 01/22/18 08:43 Other: Please Indicate Virus Culture - Final 01/22/18 Unknown Breast - Left Gram Stain - Final 01/22/18 Unknown Breast - Left Wound Culture - Final Staphylococcus Aureus Most Recent Lab Values WBC 11.5 K/uL (4.8-10.8) H 01/27/18 07:51 RBC 4.39 Mil/uL (3.80-5.20) 01/27/18 07:51 Hgb 13.0 g/dL (11.0-16.0) 01/27/18 07:51 Hct 37.8 % (34.0-47.0) 01/27/18 07:51 MCV 86.2 fL (81.0-99.0) 01/27/18 07:51 MCH 29.6 pg (27.0-31.0) 01/27/18 07:51 MCHC 34.3 g/dL (33.0-37.0) 01/27/18 07:51 RDW 12.5 % (11.5-14.5) 01/27/18 07:51 Plt Count 260 K/uL (130-400) 01/27/18 07:51 MPV 8.7 fL (7.2-11.7) 01/27/18 07:51 Neut % (Auto) 66.7 % (50.0-75.0) 01/27/18 07:51 Lymph % (Auto) 17.5 % (20.0-40.0) L 01/27/18 07:51 [place] % (Auto) 7.4 % (0.0-10.0) 01/27/18 07:51 Eos % (Auto) 7.8 % (0.0-4.0) H 01/27/18 07:51 Baso % (Auto) 0.6 % (0.0-2.0) 01/27/18 07:51 Neut # (Auto) 7.7 K/uL (1.8-7.0) H 01/27/18 07:51 Lymph # (Auto) 2.0 K/uL (1.0-4.3) 01/27/18 07:51 [place] # (Auto) 0.8 K/uL (0.0-0.8) 01/27/18 07:51 Eos # (Auto) 0.9 K/uL (0.0-0.7) H 01/27/18 07:51 Baso # (Auto) 0.1 K/uL (0.0-0.2) 01/27/18 07:51 Sodium 140 mmol/L (132-148) 01/27/18 07:51 Potassium 3.7 mmol/L (3.6-5.2) 01/27/18 07:51 Chloride 103 mmol/L (98-107) 01/27/18 07:51 Carbon Dioxide 25 mmol/L (22-30) 01/27/18 07:51 Anion Gap 16 (10-20) 01/27/18 07:51 BUN 12 mg/dL (7-17) 01/27/18 07:51 Creatinine 0.8 mg/dL (0.7-1.2) 01/27/18 07:51 Est GFR ( Amer) > 60 01/27/18 07:51 Est GFR (Non-Af Amer) > 60 01/27/18 07:51 Random Glucose 83 mg/dL (65-105) 01/27/18 07:51 Calcium 9.2 mg/dl (8.6-10.4) 01/27/18 07:51 Total Bilirubin 0.2 mg/dL (0.2-1.3) 01/27/18 07:51 AST 14 U/L (14-36) 01/27/18 07:51 ALT 19 U/L (9-52) 01/27/18 07:51 Alkaline Phosphatase 42 U/L (38-126) 01/27/18 07:51 Total Protein 6.9 g/dL (6.3-8.3) 01/27/18 07:51 Albumin 3.5 g/dL (3.5-5.0) 01/27/18 07:51 Globulin 3.4 gm/dL (2.2-3.9) 01/27/18 07:51 Albumin/Globulin Ratio 1.0 (1.0-2.1) 01/27/18 07:51 HSV I IgG Ab <0.90 index 01/22/18 07:30 HSV II IgG <0.90 index 01/22/18 07:30 Discharge Exam - Head Exam Head Exam: NORMOCEPHALIC Discharge Plan - Follow Up Plan Condition: FAIR Disposition: HOME/ ROUTINE Instructions: Dermatitis, Eczema (Atopic Dermatitis) (DC) Additional Instructions: Patient to be discharge home today, follow up with doctor in one week. Referrals: Hector Kaiser MD [Staff Provider] -
== END 2018-01-29 21:10 | disposition home or self-care (01) | DRG 607 ==
LOC: C.ER 13:11 → C.9E 17:08 → C.5S 01-23 05:00
PROVIDERS: ADMIT Internal Medicine; ATTEND Internal Medicine
DX: B00.0 Eczema herpeticum (principal); B95.61 Methicillin susceptible Staphylococcus aureus infection as the cause of diseases classified elsewhere; L20.9 Atopic dermatitis, unspecified; S21.002A Unspecified open wound of left breast, initial encounter; H16.9 Unspecified keratitis; X58.XXXA Exposure to other specified factors, initial encounter